=== PATIENT | female | born 1985 | race Caucasian/White ===

== ENCOUNTER → 2018-06-28 10:54 | Outpatient (CLI) | payer OTHER, SELFPAY ==
[2018-06-28 13:06] LABS: hCG Titer Quant., Serum < 1 mIU/mL (<9 non-preg)
== END ==
PROVIDERS: Referring Provider Obstetrics & Gynecology; Visit Provider Obstetrics & Gynecology
DX: N97.0 Female infertility associated with anovulation (principal)
CPT/HCPCS: 36415; 84702

== ENCOUNTER → 2018-08-17 11:25 | Outpatient (CLI) | payer OTHER, SELFPAY ==
[2016-12-07 19:19] VITALS: BMI 35.9
--- NOTE | 2018-08-17 11:29 | EKG12_ITS ---
Test Reason : Blood Pressure : / mmHG Vent. Rate : 078 BPM Atrial Rate : 078 BPM P-R Int : 140 ms QRS Dur : 092 ms QT Int : 406 ms P-R-T Axes : 051 027 063 degrees QTc Int : 462 ms Normal sinus rhythm Borderline ECG Reconfirmed by ERIC BRADEN, TAO ([id number]), editor news CAROLA YATES ([id number]) on 08/19/2018 2:12:53 PM Referred By: Paige Sims Confirmed By:TAO REYES MD
--- OUTSIDE RECORDS SUMMARY | 2018-10-12 20:23 | XMS RPT_ITS ---
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 [id number] System STATE R[address]TE Date:2018-06-02 - STATE ROUTE Repository [address] [place] [address] [id number] [address] [place] [id number]: Name:CD:[id number]: RT [address] [place] [address] (HP) [phone]: [phone] (HP) 000-0000 (WP) 06/02/2018 [facility] JANIE [facility] Insurance:UNITED ALLEMANDOB: [facility] HEALTHCAREPolicy [id number] System Number: Effective [address], Repository Date:2018-06-02 - [place] [address]Tyv: [id number] Name:CD:[id number] O BOX (HP)Tel: [phone] 000-0000 (WP) [place] [address]BS: 06/02/2018 [facility] ALLEMANDOB: Insurance:United ALLEMANDOB: Hospitals [id number] [facility] [id number][facility] Number: [place], [place] [id number]: Date:Plan Name:Health ()
== END ==
PROVIDERS: Referring Provider Obstetrics & Gynecology; Visit Provider Obstetrics & Gynecology
DX: Z79.899 Other long term (current) drug therapy (principal)
CPT/HCPCS: 93005

== ENCOUNTER → 2018-09-26 13:04 | Outpatient (CLI) | payer OTHER, SELFPAY ==
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
[2018-09-01 08:37] LABS: Internal QC Validated? YES +Cl - CLEAR BKGD
[2018-09-01 08:42] LABS: Pregnancy, Urine Positive Negative
[2018-09-01 08:49] LABS: Hematocrit 44.2 % (37-47); Hemoglobin 15.1 g/dl (12.0-15.0); Mean Corp Hgb Conc 34.2 g/gl (32-36); Mean Corpuscular Hgb 30.6 pg (27.0-32.0); Mean Corpuscular Volume 89.7 fL (81-99); Mean Platelet Vol. 8.8 fl (6.2-12.0); Platelet Count 268 K/mm3 (150-450); RBC Distribution Width CV 13.1 % (11.6-14.6); RBC Distribution Width SD 42.5 fl (35.1-43.9); Red Blood Count 4.93 M/mm3 (4.2-5.4); Scan Indicated on CBC? Y/N NO; White Blood Count 5.4 K/mm3 (4.4-11.0)
[2018-09-01 09:01] LABS: Prothrombin Time (Protime)PT. 13.3 SECONDS (11.7-14.9)
[2018-09-01 09:02] LABS: Partial Thromboplast Time 28.4 Seconds (24.1-36.2)
--- NOTE | 2018-09-01 09:05 | US_ITS ---
STUDY: FIRST TRIMESTER OBSTETRICAL ULTRASOUND REASON FOR EXAM: Female, 33 years old. Pain/cramping. Irregular menses. LMP: No LMP. TECHNIQUE: Transvaginal TECHNICAL QUALITY: Adequate. PRIOR ULTRASOUND: None. FINDINGS: There is visualization of a single gestational sac in a normal intrauterine position. The mean sac diameter (MSD) measures 6.3 mm, indicating an estimated gestational age (EGA) of 5 weeks, 1 days. The gestational sac shape is within normal limits. There is no demonstrated yolk sac. The placenta is non-visualized. There is no demonstrated embryo ( pole). The estimated gestation age (EGA) by LMP unknown. The estimated gestation age (EGA) by US is 5 weeks, 1 days. The estimated date of delivery (ISAAK) by US is May 03, 2019.. The uterus measures 8.9 cm x 5.6 cm x 4.6 cm. There is no demonstrated uterine fibroid. The cervix is closed. The right ovary measures 2.7 cm x 2.1 cm x 2.4 cm. There is no right ovarian cyst. There is no visualized right adnexal mass or complex lesion. The left ovary measures 2.4 cm x 2.3 cm x 1.7 cm. There is no left ovarian cyst. There is no visualized left adnexal mass or complex lesion. There is no fluid in the cul de sac. US/Transvaginal w/Preg US IMPRESSION: Intrauterine gestational sac suggestive of a 5 week 1 day gestation. No pole or yolk sac is seen. Correlation with the beta hCG and a follow-up sonogram of the pelvis in 7-10 days is recommended. Electronically Signed: Iglesia Leggett MD at 10:43 EST Tel [phone], Service support ,
[2018-09-01 09:46] LABS: hCG Titer Quant., Serum 2377 mIU/mL (<9 non-preg)
== END ==
PROVIDERS: Referring Provider Obstetrics & Gynecology; Visit Provider Obstetrics & Gynecology
DX: Z01.812 Encounter for preprocedural laboratory examination (principal); N87.1 Moderate cervical dysplasia; N92.6 Irregular menstruation, unspecified
CPT/HCPCS: 36415; 76817; 81025; 84702; 85027; 85610; 85730; 86850; 86900; J7120

== ENCOUNTER 2018-09-29 05:43 | Day surgery (SDC) | payer OTHER, SELFPAY ==
[2016-12-07 19:19] VITALS: BMI 35.9
[2018-09-29] VITALS (9 sets, daily range): BP systolic 94–140; BP diastolic 60–83; PULSE 74–101; RESP 16–18; TEMP 36.4–37; O2SAT 95–98; BMI 34.5
--- NOTE | 2018-09-29 | IMM_PTH ---
PATIENT: TANVI THORNTON LOC: [facility] [place] U#:[id number] AGE/SX: 33/F ROOM: RE09/29/[address]: Dr. Paige Yoo MD : 1985 BED: DIS: 09/29/2018 SPEC #: [id number] RECD: 10/04/18 08:59 STATUS: MELISSA REQ #: [id number] AIDA: 09/29/18 00:[address]: Paige Amanda DEPT: IMMUNOHISTOCHEMISTRY RECD BY: Kyra Rosario ENTERED: 10/04/18 09:00 SP TYPE: IMMUNO OT DR: No Primary Care Phys Tissues: B - Uterine cervix, NOS Procedures: p16 (initial) KI-67 (add) P16 (add) PHYSICIAN & INSTITUTION [place] [id number] SPECIMEN INFORMATION: Tissue Source: B - Cold cone Clinical Info: Anembryonic , HUGO II Specimen Number: [id number] B3 & B4 CPT code: 30393, 40445 x3 METHODOLOGY: Deparaffinized sections of prefer/formalin-fixed tissue or PAP/DQ stained slides are incubated with monoclonal/polyclonal antibodies/oligonucleotide probes. Localization is made via biotin free immunoperoxidase method. Appropriate controls are performed and reacted as expected. Results on target cell population are indicated in the following table: RESULTS: ANTIBODY / CLONE RESULT Block B3 P16 (E6H4) negative Ki-67 (30-9) negative Block B4 P16 (E6H4) positive, focal, patchy Ki-67 (30-9) positive, low These tests were developed and their performance characteristics determined by [facility]. They may not have been cleared or approved by the U.S. Food and Drug Administration. The FDA has determined that such clearance or approval is not necessary. INTERPRETATION: Marta Cervix, cold conization: Focal mild squamous dysplasia, HUGO I (LSIL). AM:melony 10/04/18
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
--- NOTE | 2018-09-29 07:15 | POC_PTH ---
PATIENT: TANVI THORNTON LOC: [facility] [place] U#:[id number] AGE/SX: 33/F ROOM: RE09/29/[address]: Dr. Paige Yoo MD : 1985 BED: DIS: 09/29/2018 SPEC #: [id number] RECD: 09/29/18 09:32 STATUS: MELISSA REEstefany #: [id number] AIDA: 09/29/18 07:[address]: Paige Amanda DEPT: SURGICAL PATHOLOGY RECD BY: Benito Richards ENTERED: 09/29/18 10:48 SP TYPE: PROD CONC OTHR DR: No Primary Care Phys Tissues: A - Product of conception, NOS B - Endocervical C - Endocervical Procedures: Surgery Specimen Level IV Surgery Specimen Level V HEADER OPERATION: Dilation and curettage, suction, cold knife cone PRE-OP DIAGNOSIS: Anembryonic , HUGO II TISSUE SUBMITTED: A - Products of conception, B - Cold cone, C - Endocervical MICROSCOPIC DIAGNOSIS A. Endometrium, curettage: Chorionic villi, decidualized stroma and trophoblastic cells consistent with products of conception. B. Cervix, cold conization: Mild squamous dysplasia, HUGO I (LGSIL). Changes consistent with HPV cytopathic effect. Squamous metaplasia and chronic inflammation. Margins of excision are free of dysplasia. C. Endocervix, curettings: Strips of superficial endocervix. No evidence of dysplasia. AM:melony 09/30/18 AM:melony 10/04/18 COMMENT B. Immunohistochemistry ([id number]) for surrogate HPV marker (p16) supports the above diagnosis. Case has been reviewed in consultation with Dr. Broussard who concurs with the above diagnosis. IDC:SJ MICROSCOPIC DESCRIPTION Slides are reviewed. GROSS DESCRIPTION A - Received in fixative is one container labeled with the patient's name and designated products of conception. The specimen consists of multiple fragments of pink-red hemorrhagic soft tissue that in aggregate measure 8 x 9 x 3 cm. tissue is not identified. Upholstery Instructor tissue is submitted in two cassettes. B - Received in fixative is one container labeled with the patient's name and designated cold cone. The specimen consists of three variable sized pieces of wagner, indurated tissue that in aggregate measure 3 x 3 x 0.5 cm. No mucosal lesion is identified. The mucosal surface is inked black. Also present in the container are two fragments of brownish soft tissue measuring in aggregate 1.5 x 0.2 x 0.1 cm. The entire specimen is submitted in six cassettes as follows: 1-3 - largest piece, 4 & 5 - two smaller pieces, 6 - smaller fragments of brownish soft tissue. C - Received in fixative is one container labeled with the patient's name and designated endocervical curettings. The specimen consists of scant fragments of hemorrhagic soft tissue measuring 0.3 x 0.3 x 0.1 cm. The specimen is totally submitted in one cassette. / SJ:rg 09/29/18 TC:5 CPT: 94952 x2, 31624
--- NOTE | 2018-09-29 07:15 | POC_PTH ---
PATIENT: TANVI THORNTON LOC: [facility] – [place] U#:[id number] AGE/SX: 33/F ROOM: RE09/29/[address]: Dr. Paige Yoo MD : 1985 BED: DIS: 09/29/2018 SPEC #: [id number] RECD: 09/29/18 09:32 STATUS: MELISSA REEstefany #: [id number] AIDA: 09/29/18 07:[address]: Paige Amanda DEPT: SURGICAL PATHOLOGY RECD BY: Benito Richards ENTERED: 09/29/18 10:48 SP TYPE: PROD CONC OTHR DR: No Primary Care Phys Tissues: A - Product of conception, NOS B - Endocervical C - Endocervical Procedures: Surgery Specimen Level IV Surgery Specimen Level V HEADER OPERATION: Dilation and curettage, suction, cold knife cone PRE-OP DIAGNOSIS: Anembryonic , HUGO II TISSUE SUBMITTED: A - Products of conception, B - Cold cone, C - Endocervical MICROSCOPIC DIAGNOSIS A. Endometrium, curettage: Chorionic villi, decidualized stroma and trophoblastic cells consistent with products of conception. B. 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 Squamous metaplasia and chronic inflammation. Margins of excision are free of dysplasia. C. Endocervix, curettings: Strips of superficial endocervix. No evidence of dysplasia. AM:melony 09/30/18 COMMENT B. Immunohistochemistry ([id number]) for surrogate HPV marker (p16) supports the above diagnosis. Case has been reviewed in consultation with Dr. Broussard who concurs with the above diagnosis. IDC:SJ MICROSCOPIC DESCRIPTION Slides are reviewed. GROSS DESCRIPTION A - Received in fixative is one container labeled with the patient's name and designated products of conception. The specimen consists of multiple fragments of pink-red hemorrhagic soft tissue that in aggregate measure 8 x 9 x 3 cm. tissue is not identified. Truckman tissue is submitted in two cassettes. B - Received in fixative is one container labeled with the patient's name and designated cold cone. The specimen consists of three variable sized pieces of wagner, indurated tissue that in aggregate measure 3 x 3 x 0.5 cm. No mucosal lesion is identified. The mucosal surface is inked black. Also present in the container are two fragments of brownish soft tissue measuring in aggregate 1.5 x 0.2 x 0.1 cm. The entire specimen is submitted in six cassettes as follows: 1-3 - largest piece, 4 & 5 - two smaller pieces, 6?- smaller fragments of brownish soft tissue. C - Received in fixative is one container labeled with the patient's name and designated endocervical curettings. The specimen consists of scant fragments of hemorrhagic soft tissue measuring 0.3 x 0.3 x 0.1 cm. The specimen is totally submitted in one cassette. / SJ:rg 09/29/18 TC:5 CPT: 60946 x2, [id number]
[2018-09-29] MEDS: Lubricating Jelly 60 GM Tube 30 GM TOPICAL (07:40)
[2018-09-29] MEDS: FERRIC SUBSULFATE 8 GM SOLN (08:29)
--- NOTE | 2018-09-29 08:43 | PCM.DC.D&C ---
Discharge Diet: No Restrictions Discharge Activity: Return to Normal Activity, May Shower, - - No tub bath, no tampons, no intercourse, no douching May resume sexual activity in: 4 weeks Lifting Restrictions: 10 lb Call your doctor if you observe: Fever of 101 or Higher, Inability to urinate, Inability to have a bowel movement, Using more than one pad per hour, Shortness of breath, Calf discomfort, Uncontrolled pain Suture Line Care: Avoid Pulling/Pushing Additional Instructions: You may Ibuprofen or Tylenol over the counter as needed for pain. Allergies/Adverse Reactions: Allergies latex Adverse Reaction (Verified 09/22/18 13:11) Rash Medications to take at Discharge Vits [Prenatabs FA] 1 tablet PO DAILY 09/22/18 Vitamin B Complex 1 each PO DAILY 09/22/18 Primary Care Physician: Care Physician,No Primary [Primary Care Provider] - Test Results: Test results from this visit will be discussed in further detail at your follow-up appointment, if applicable. Please Follow Up With: Paige Sims MD When: Wednesday10/11/18 at 1:45pm
--- NOTE | 2018-09-29 08:46 | DCINST_ITS ---
Discharge Diet: No Restrictions Discharge Activity: Return to Normal Activity, May Shower, - - No tub bath, no tampons, no intercourse, no douching May resume sexual activity in: 4 weeks Lifting Restrictions: 10 lb Call your doctor if you observe: Fever of 101 or Higher, Inability to urinate, Inability to have a bowel movement, Using more than one pad per hour, Shortness of breath, Calf discomfort, Uncontrolled pain Suture Line Care: Avoid Pulling/Pushing Additional Instructions: You may Ibuprofen or Tylenol over the counter as needed for pain. Allergies/Adverse Reactions: Allergies latex Adverse Reaction (Verified 09/22/18 13:11) Rash Medications to take at Discharge Vits [Prenatabs FA] 1 tablet PO DAILY 09/22/18 Vitamin B Complex 1 each PO DAILY 09/22/18 Primary Care Physician: Care Physician,No Primary [Primary Care Provider] - Test Results: Test results from this visit will be discussed in further detail at your follow- up appointment, if applicable. Please Follow Up With: aPige Sims MD When: Wednesday10/11/18 at 1:45pm
--- NOTE | 2018-09-29 08:57 | PCM.OPRPT ---
Problem List (1) Anembryonic Status: Acute (2) HUGO II (cervical intraepithelial neoplasia II) Status: Acute Report of Operation Date of Procedure: 09/29/18 Pre-Operative Diagnosis: HUGO II, anembryonic gestation Post-Operative Diagnosis: CINII, anembryonic gestation Surgery/Procedure Performed:: Suction dilation and curettage, cold knife conization Type of Anesthesia:: Local MAC Anesthesiologist: Joseph Sánchez Specimen's removed: 1. products of conception 2. ectocervix 3. ecc Estimated Blood Loss (mL): 100 Fluids Replaced: 900 ml Description of Procedure: Patient was taken to the operating room and placed in the dorsal supine position and induced under MAC. She was then repositioned into dorsolithotomy and an examination under anesthesia was performed. The perineum was prepped and draped in sterile fashion. A weighted speculum was placed into the vaginal and the cervix grasped at the anterior cervical lip using a single tooth tenaculum. The cervix was dilated and suction curettage performed using an 8mm curved curette. Sharp curettage was alternately performed until the uterus was globally gritty at there was no further tissue retrieval and I felt the uterus contract in size. Attention was turned to the cervix. Lugol's solution was applied. A cold knife conization was performed using the scalpel. The cone specimen fragmented at 3 to 7 o'clock thus there were two components to a single specimen. Endocervical curettage was performed. The excisional bed was fulgarated using the ball electrode and Monsel's applied with good hemostasis. The patient was awakened and transferred to the recovery room without complication. Sponge counts were correct x 2. - Complications None - Admit VTE Documentation VTE Present on Admission: No VTE Mechan Device Prophylaxis: SCD's VTE Pharm Prophylaxis ordered?: No
[2018-09-29 10:20] LABS: Hematocrit 40.1 % (37-47); Hemoglobin 13.9 g/dl (12.0-15.0); Mean Corp Hgb Conc 34.7 g/gl (32-36); Mean Corpuscular Hgb 31.2 pg (27.0-32.0); Mean Corpuscular Volume 89.9 fL (81-99); Mean Platelet Vol. 8.7 fl (6.2-12.0); Platelet Count 283 K/mm3 (150-450); RBC Distribution Width CV 12.7 % (11.6-14.6); RBC Distribution Width SD 41.3 fl (35.1-43.9); Red Blood Count 4.46 M/mm3 (4.2-5.4); White Blood Count 6.3 K/mm3 (4.4-11.0)
[2018-09-29 10:23] LABS: Scan Indicated on CBC? Y/N NO
== END 2018-09-29 11:55 | disposition home or self-care (01) ==
LOC: SDC 05:44 → AC 05:45
PROVIDERS: Referring Provider Obstetrics & Gynecology; Visit Provider Obstetrics & Gynecology
PROC: (CPT 57520; principal; 2018-09-29 07:00)
DX: N87.1 Moderate cervical dysplasia (principal); O02.0 Blighted ovum and nonhydatidiform mole
CPT/HCPCS: 57520; 36415; 85027; 86850; 86900; 88305; 88307; 88341; 88342; J7120; J2405